=== PATIENT | male | born 1975 ===

== ENCOUNTER 2020-09-27 13:34 | Emergency (ER) | payer SELFPAY ==
[~2020-09-27] VITALS: Ht 170.2 cm; Wt 78.3 kg
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
--- NOTE | 2020-09-27 14:00 | NUR ---
ICE APPLIED TO PT'S LEFT SHOULDER.
[2020-09-27] MEDS ORDERED: OXYcodone/APAP 5/325MG TABLET ONE (14:29)
[2020-09-27] MEDS ORDERED: OXYcodone/APAP 5/325MG TABLET PO ONE (14:30)
--- NOTE | 2020-09-27 14:33 | NUR ---
PT MEDICATED PER EMAR. PT AMBULATES TO IMAGING WITH TECH. NAD NOTED. INCENTIVE SPIROMETER AT BEDSIDE.
--- NOTE | 2020-09-27 15:18 | NUR ---
PT TO CT
[2020-09-27] MEDS ORDERED: SODIUM CHLORIDE 0.9% 1,000 ML IV ONE ×4 (15:30)
[2020-09-27] MEDS ORDERED: SODIUM CHLORIDE 0.9% 1,000ML IVBOLUS ONE (15:30)
[2020-09-27] MEDS ORDERED: OMNIPAQUE 350 MG/ML, 100ML BOTTLE ONE (15:36)
[2020-09-27 15:40] VITALS: BP 136/96
--- NOTE | 2020-09-27 15:41 | NUR ---
PT RETURNED FROM CT. CHEST TUBE SET UP AT BEDSIDE. SUPERINTENDENT STEVEDORING AWARE OF PT'S STATUS. LAB CURRENTLY AT BEDSIDE.
[2020-09-27 16:00] LABS: ALBUMIN 3.5 g/dL (3.4-5.0); ANION GAP 8 mmol/L (5-15); CALCIUM 8.5 mg/dL (8.5-10.1); CHLORIDE 100 mmol/L (98-107)
[2020-09-27 16:01] LABS: BASOPHILS % (AUTO) 0 % (0-1); EOSINOPHILS % (AUTO) 0 % (1-7); LYMPHOCYTES % (AUTO) 9 % (22-44); MEAN CORPUSCULAR HEMOGLOBIN 33.9 pg (27.5-34.5); MEAN CORPUSCULAR HGB CONC 35.4 g/dL (33.2-36.2); MEAN PLATELET VOLUME 9.4 fL (7.4-10.4); MONOCYTES % (AUTO) 10 % (2-9); NEUTROPHILS % (AUTO) 81 % (42-75); PLATELET COUNT 180 x10^3/uL (130-400); RED BLOOD COUNT 3.57 x10^6/uL (4.38-5.82); RED CELL DISTRIBUTION WIDTH 13.1 % (9.4-14.8)
--- NOTE | 2020-09-27 16:15 | NUR ---
ON HOLD TO GIVE REPORT TO RENOWN.
[2020-09-27 16:28] LABS: MD SCAN
--- NOTE | 2020-09-27 16:36 | NUR ---
REPORT GIVEN TO LARS MANDEL AND TO MEHUL HAYES, WHO HAVE LEFT WITH PT.
== END 2020-09-27 16:39 | disposition short-term general hospital (02) ==
LOC: ED 16:24
DX: S42.012A Anterior displaced fracture of sternal end of left clavicle, initial encounter for closed fracture (principal); S22.42XA Multiple fractures of ribs, left side, initial encounter for closed fracture; S22.039A Unspecified fracture of third thoracic vertebra, initial encounter for closed fracture; S22.079A Unspecified fracture of T9-T10 vertebra, initial encounter for closed fracture; S27.1XXA Traumatic hemothorax, initial encounter; V27.4XXA Motorcycle driver injured in collision with fixed or stationary object in traffic accident, initial encounter; Y93.89 Activity, other specified; Y92.89 Other specified places as the place of occurrence of the external cause; Y99.8 Other external cause status
CPT/HCPCS: 36415; 71101; 71260; 73000; 73030; 74177; 80048; 82040; 85025; 96360; 99285; J7030; Q9967